=== PATIENT | female | born 1990 | race American Indian/Alaskan Native ===

== ENCOUNTER 2021-04-01 08:00 | Outpatient (CLI) | payer OTHER | END 2021-04-01 08:30 | disposition home or self-care (01) | LOC: PPH VACUNA 08:00 | PROVIDERS: ATTEND Emergency Medicine Pediatric Emergency Medicine | DX: Z23 Encounter for immunization (principal) ==

== ENCOUNTER 2021-11-05 08:00 | Outpatient (CLI) | payer OTHER | END 2021-11-05 08:05 | disposition home or self-care (01) | LOC: PPH VACUNA 08:00 | PROVIDERS: ATTEND Emergency Medicine Pediatric Emergency Medicine | DX: Z23 Encounter for immunization (principal) ==

== ENCOUNTER 2022-08-13 15:21 | Emergency (ER) | payer OTHER ==
[~2022-08-13] VITALS: Ht 165.1 cm; Wt 74.8 kg
== END 2022-08-13 18:23 | disposition home or self-care (01) ==
LOC: ER 15:21
DX: J06.9 Acute upper respiratory infection, unspecified (principal); Z20.822 Contact with and (suspected) exposure to COVID-19

== ENCOUNTER 2022-10-23 11:02 | Outpatient (CLI) | payer OTHER | END 2022-10-23 11:12 | disposition home or self-care (01) | LOC: PPH VACUNA 11:02 | PROVIDERS: ATTEND Emergency Medicine Pediatric Emergency Medicine | DX: Z23 Encounter for immunization (principal) | CPT/HCPCS: 90686; G0008 ==

== ENCOUNTER 2023-01-18 10:29 | Outpatient (CLI) | payer OTHER | END 2023-01-18 10:34 | disposition home or self-care (01) | LOC: RAD 10:29 | DX: M54.9 Dorsalgia, unspecified (principal) ==

== ENCOUNTER 2023-05-11 10:14 | Outpatient (CLI) | payer OTHER | END 2023-05-11 10:25 | disposition home or self-care (01) | LOC: SONOGRAMA 10:14 | PROVIDERS: ATTEND Internal Medicine | DX: E04.0 Nontoxic diffuse goiter (principal) ==

== ENCOUNTER 2023-12-16 01:45 | Outpatient (CLI) | payer OTHER | END 2023-12-16 02:00 | disposition home or self-care (01) | LOC: PPH VACUNA 01:45 | PROVIDERS: ATTEND Emergency Medicine Pediatric Emergency Medicine | DX: Z23 Encounter for immunization (principal) ==